=== PATIENT | female | born 1935 | race Caucasian/White ===

== ENCOUNTER 2018-10-06 08:33 | Emergency (ER) | payer OTHER, MEDICARE ==
[2018-10-06 08:52] VITALS: BP 161/78; PULSE 76; TEMP 98.1; BMI 28.3
--- NOTE | 2018-10-06 09:00 | PDOC ---
History of Present Illness - General Chief Complaint: Pain Stated Complaint: RT HIP LEG PAIN Time Seen by Provider: 10/06/18 08:58 History Source: Patient Exam Limitations: No Limitations - History of Present Illness Initial Comments: 10/06/18 09:17 83 YOF with h/o HTN and HLD, arthritis and left hip tendonitis, rotator cuff repair presenting with right buttock/hip pain x 1 day. Yesterday, she was getting up from chair in kitchen when she had her hip give out, leading to subsequent pain and difficulty walking. No falls. No head trauma. a/w lower right lumbar back pain. She has had issues with left hip/ arthritis in the past. No urinary or stool incontinence/changes. No fever or chills. No weakness or paresthesias. No abdominal pain. Has tried tylenol for pain with some relief. Has not tried additional analgesia agents. No h/o frequent falls. PMH HTN and HLD, arthritis and left hip tendonitis PSH rotator cuff repair social lives with /family. no tobacco or etoh or drugs. ROS Constitutional: no fever Gastrointestinal: no abdominal pain, nausea or vomiting. Genitourinary: no urinary sx, hematuria. No retention or incontinence. MUSCULOSKELETAL: No joint pain and swelling. No neck pain. +back pain. +buttock/ hip pain SKIN: no redness or skin changes, no discharge, no rash. No wounds. Hematologic: no easy bruising/bleeding. NEUROLOGIC: No weakness, numbness or tingling. Allergic/Immunologic: no allergies All other systems reviewed and negative, or as documented in HPI. PE: General: NAD, well appearing Abdomen: nontender, soft. obese. Vascular: 2+ DP pulses symmetric and equal. Back: no midline tenderness, no stepoffs, FROM in all extremities. pelvis stable , ROM in hip intact, no palp tenderness . +right paravertebral lumbar and SI joint tenderness to palpation. Focused MSK/Neuro Exam notable for soft compartments, Cap refill <2 sec. Proximal and distal strength 5/5, strategy intern strength 5/5 - equal and symmetric. Plantar flexion and dorsiflexion 5/5. FROM. Sensation grossly intact to light touch. Neg SLR bilaterally. Wiggles toes bilaterally. Skin: color normal color, warm and well perfused. 10/06/18 10:30 10/06/18 10:31 Past History - Past Medical History Allergies/Adverse Reactions: Allergies Allergy/AdvReac Type Severity Reaction Status Date / Time No Known Drug Allergies Allergy Verified 10/06/18 09:23 Home Medications: Ambulatory Orders Acetaminophen [Tylenol -] 500 mg PO ONCE PRN 10/06/18 Amlodipine Besylate 5 mg PO DAILY 10/06/18 Atorvastatin Ca [Lipitor] 20 mg PO HS 10/06/18 Cyclobenzaprine HCl [Flexeril 10 mg] 10 mg PO TID PRN #15 tablet 10/06/18 Anemia: No Asthma: No Cancer: No Cardiac Disorders: No CVA: No COPD: No CHF: No Dementia: No Diabetes: No GI Disorders: No Disorders: No HTN: No Hypercholesterolemia: Yes Liver Disease: No Seizures: No Thyroid Disease: No Other medical history: SPINAL STENOSIS - Surgical History Abdominal Surgery: No Appendectomy: No Cardiac Surgery: No Cholecystectomy: No Lung Surgery: No Neurologic Surgery: No Orthopedic Surgery: Yes (LEFT SHOULDER ARTHROSCOPY) - Suicide/Smoking/Psychosocial Hx Smoking History: Never smoked Have you smoked in the past 12 months: No Information on smoking cessation initiated: No Hx Alcohol Use: No Drug/Substance Use Hx: No Substance Use Type: None Hx Substance Use Treatment: No *Physical Exam - Vital Signs Last Vital Signs Temp Pulse Resp BP Pulse Ox 98.1 F 76 20 161/78 99 10/06/18 08:33 10/06/18 08:33 10/06/18 08:33 10/06/18 08:33 10/06/18 08:33 Moderate Sedation - Procedure Monitoring Vital Signs: Procedure Monitoring Vital Signs Temperature 98.1 F 10/06/18 08:33 Pulse Rate 76 10/06/18 08:33 Respiratory Rate 20 10/06/18 08:33 Blood Pressure 161/78 10/06/18 08:33 O2 Sat by Pulse Oximetry (%) 99 10/06/18 08:33 Medical Decision Making - Medical Decision Making 10/06/18 09:17 DDx. back pain: lumbar strain, sciatica, lumbar radiculopathy, buttock strain. muscle spasms; doubt cord compression or cauda equina w/o red flag sx and normal rectal tone. plan: Xrays hip/pelvis; analgesia. no back lumbar xray indicated, as no midline tenderness, no falls or trauma to suggest injuries or compression fx. given lidoderm patch, NSAID and flexeril Xray_pelvis/right hip with degenerative changes. SI jt maintained. no fx. no dislocation or other injuries. supportive care and ROM exercises as discussed. f/u doctor for her shots/ arthritis treatment (usually gets steroid inj on left hip for arthritis). dispo: Pt to be discharged in stable condition. Patient and family made aware of impression and plan, return precautions discussed (including but not limited to worsening pain or symptoms), fevers, or signs of infection, chest pain, respiratory distress, inability to tolerate oral intake, dehydration, syncope, or neurologic changes). Follow up with PMD and/or specialist as recommended, follow up information provided, take medications as instructed for duration of time. continue with supportive care, avoid triggers and precipitants. Patient does not suffer from an acute life-threatening medical condition at this time she is safe for outpatient follow-up. 10/06/18 10:27 *DC/Admit/Observation/Transfer Diagnosis at time of Disposition: Strain of lumbar paraspinal muscle Qualifiers: Encounter type: initial encounter Qualified Code(s): S39.012A - Strain of muscle, fascia and tendon of lower back, initial encounter Strain of right buttock Qualifiers: Encounter type: initial encounter Qualified Code(s): S76.011A - Strain of muscle, fascia and tendon of right hip, initial encounter - Discharge Dispostion Disposition: HOME Condition at time of disposition: Improved Decision to Admit order: No - Prescriptions Prescriptions: Cyclobenzaprine HCl [Flexeril 10 mg] 10 mg PO TID PRN #15 tablet PRN Reason: Muscle Spasms - Referrals Referrals: Manny Rosas MD [Staff Physician] - Waldemar Ricketts MD [Staff Physician] - - Patient Instructions Printed Discharge Instructions: DI for Muscle Strain, DI for Back Strain or Sprain Additional Instructions: you most likely have musculoskeletal strain of your lumbar/gluteus muscles. your Xrays appear normal with some arthritic changes that could be precipitating the pain avoid heavy lifting or strenuous activity rest and take tylenol as needed for mild to moderate pain. flexeril is a muscle relaxant, take three times a day as needed may cause sleepiness, do not drive or operate machinery. topical lidoderm patch to the area affected, 12 hours on and 12 hours off.. May take ibuprofen/tylenol as needed, over the counter. continue with range of motion exercises. images and information provided to assist with home physical therapy Follow up with primary doctor/specialist services provided as well. orthopedics referrals given. - Post Discharge Activity
[2018-10-06] MEDS ORDERED: CYCLOBENZAPRINE HCL 5 MG TABLET PO ONE (09:10)
[2018-10-06] MEDS ORDERED: IBUPROFEN 600 MG TABLET (FP) PO ONE ×2 (09:10→09:17)
[2018-10-06] MEDS ORDERED: LIDOCAINE 5% TOPICAL PATCH TP ONE (09:10)
[2018-10-06] MEDS ORDERED: CYCLOBENZAPRINE HCL 10 MG TABLET (FP) ONE (09:17)
[2018-10-06] MEDS ORDERED: LIDOCAINE 5% TOPICAL PATCH ONE (09:17)
[2018-10-06] MEDS ORDERED: LIDOCAINE PATCH REMOVAL MC SCH (22:00)
== END 2018-10-06 10:35 | disposition home or self-care (01) ==
LOC: FER 08:33
DX: S39.012A Strain of muscle, fascia and tendon of lower back, initial encounter (principal); S76.011A Strain of muscle, fascia and tendon of right hip, initial encounter; X58.XXXA Exposure to other specified factors, initial encounter; Y93.89 Activity, other specified; Y92.9 Unspecified place or not applicable; Y99.9 Unspecified external cause status; I10 Essential (primary) hypertension; E78.5 Hyperlipidemia, unspecified
CPT/HCPCS: 73523-TC-FY; 99282-25

== ENCOUNTER 2022-06-19 11:09 | Inpatient (IN) | payer OTHER, MEDICARE ==
[2022-06-19 11:29] VITALS: BMI 25.2
[2022-06-19] MEDS ORDERED: ACETAMINOPHEN 1000 MG/100 ML BAG IVPB ONE (12:40)
[2022-06-19] MEDS ORDERED: ACETAMINOPHEN INJECTION 100 ML IVPB ONE (13:13)
[2022-06-19 13:20] LABS: BASO % 0.6 % (0-2.0); EOS % 0.9 % (0-4.5); HEMATOCRIT 36.5 % (32.4-45.2); HEMOGLOBIN 12.5 GM/dL (10.7-15.3); LYMPH % 11.1 % (8-40); MCH 32.1 pg (25.7-33.7); MCHC 34.3 g/dl (32.0-36.0); MEAN CELL VOLUME 93.6 fl (80-96); MEAN PLT VOLUME 8.1 fl (7.5-11.1); MONO % 8.4 % (3.8-10.2); PLATELET COUNT 194 10^3/uL (134-434); RDW 13.2 % (11.6-15.6); WHITE BLOOD COUNT 8.9 K/mm3 (4.0-10.0)
[2022-06-19 13:32] LABS: ACTIVATED PTT 31.8 SECONDS (25.2-36.5); INR 1.03 (0.83-1.09); PROTHROMBIN TIME (PATIENT) 11.9 SEC (9.7-13.0)
[2022-06-19 13:41] LABS: ALBUMIN 3.4 g/dl (3.4-5.0); CALCIUM 9.7 mg/dL (8.5-10.1)
[2022-06-19 13:44] LABS: CREATININE 0.7 mg/dL (0.55-1.3)
[2022-06-19 13:46] LABS: BILIRUBIN,TOTAL 1.1 mg/dL (0.2-1); TOT PROT 10.3 g/dl (6.4-8.2)
[2022-06-19 14:09] LABS: BLOOD UREA NITROGEN 17.1 mg/dL (7-18)
[2022-06-19] MEDS ORDERED: CEFTRIAXONE 1 GM in DEXTROSE 5%-WATER - 100 ML IVPB ONE (18:27)
[2022-06-19] MEDS ORDERED: CEFTRIAXONE 1 GM/50 ML BAG ONE (19:05)
[2022-06-19] MEDS ORDERED: oxyCODONE HCL 5 MG TABLET PO PRN (21:09)
[2022-06-19 23:58] LABS: URINE APPEARANCE CLEAR; URINE BILIRUBIN NEGATIVE (NEGATIVE); URINE COLOR YELLOW; URINE GLUCOSE (UA) NEGATIVE (NEGATIVE)
[2022-06-19 23:59] LABS: URINE KETONE TRACE (NEGATIVE); URINE LEUK ESTERASE NEGATIVE (NEGATIVE); URINE NITRITE NEGATIVE (NEGATIVE); URINE PROTEIN NEGATIVE (NEGATIVE); URINE UROBILINOGEN 0.2 mg/dL (0.2-1.0)
[2022-06-20 07:43] LABS: BASO % 0.4 % (0-2.0); EOS % 0.2 % (0-4.5); HEMOGLOBIN 11.1 GM/dL (10.7-15.3); LYMPH % 11.5 % (8-40); MCH 31.5 pg (25.7-33.7); MCHC 33.5 g/dl (32.0-36.0); MEAN PLT VOLUME 9.4 fl (7.5-11.1); MONO % 9.1 % (3.8-10.2); NEUT % 78.8 % (42.8-82.8); PLATELET COUNT 179 10^3/uL (134-434); RBC 3.51 M/mm3 (3.60-5.2); RDW 13.3 % (11.6-15.6); WHITE BLOOD COUNT 8.9 K/mm3 (4.0-10.0)
[2022-06-20 08:14] LABS: CALCIUM 8.6 mg/dL (8.5-10.1); MAGNESIUM 2.4 mg/dL (1.8-2.4)
[2022-06-20 08:16] LABS: CREATININE 0.7 mg/dL (0.55-1.3); PHOSPHOROUS 3.4 mg/dL (2.5-4.9)
[2022-06-20 08:19] LABS: BILIRUBIN,TOTAL 1.3 mg/dL (0.2-1); TOT PROT 8.8 g/dl (6.4-8.2)
[2022-06-20 08:26] LABS: BLOOD UREA NITROGEN 17.6 mg/dL (7-18)
[2022-06-20] MEDS: amLODIPine BESYLATE 5 MG TABLET (FP) PO SCH (11:03)
[2022-06-20] MEDS: NYSTATIN 100,000 UNIT/GM TOPICAL CREAM 15 GM TUBE TP SCH ×2 (14:21→21:24)
[2022-06-20 15:01] LABS: BILIRUBIN,DIRECT 0.3 mg/dL (0.0-0.2)
[2022-06-20] MEDS ORDERED: ATORVASTATIN CA 20 MG TABLET (FP) PO SCH (22:00)
[2022-06-20] MEDS ORDERED: ATORVASTATIN CA 40 MG TABLET (FP) PO SCH (22:00)
[2022-06-21 08:52] LABS: HEMATOCRIT 35.1 % (32.4-45.2); HEMOGLOBIN 11.8 GM/dL (10.7-15.3); MCH 31.8 pg (25.7-33.7); MCHC 33.6 g/dl (32.0-36.0); MEAN CELL VOLUME 94.6 fl (80-96); MEAN PLT VOLUME 9.2 fl (7.5-11.1); PLATELET COUNT 174 10^3/uL (134-434); RBC 3.71 M/mm3 (3.60-5.2); RDW 13.1 % (11.6-15.6)
[2022-06-21 09:14] LABS: ALBUMIN 3.3 g/dl (3.4-5.0); MAGNESIUM 2.4 mg/dL (1.8-2.4)
[2022-06-21 09:17] LABS: CREATININE 0.8 mg/dL (0.55-1.3); PHOSPHOROUS 2.1 mg/dL (2.5-4.9)
[2022-06-21 09:19] LABS: BILIRUBIN,TOTAL 1.4 mg/dL (0.2-1); TOT PROT 9.6 g/dl (6.4-8.2)
[2022-06-21 09:20] LABS: BLOOD UREA NITROGEN 18.4 mg/dL (7-18)
[2022-06-21] MEDS: NYSTATIN 100,000 UNIT/GM TOPICAL CREAM 15 GM TUBE TP SCH (09:41)
[2022-06-21] MEDS: amLODIPine BESYLATE 5 MG TABLET (FP) PO SCH (09:41)
[2022-06-21 10:25] VITALS: BP 118/64; PULSE 78; RESP 18; TEMP 97.8
== END 2022-06-21 14:43 | disposition home health service (06) | DRG 315 ==
LOC: JER 11:09 → JERBED 14:57 → MERGE 21:09 → OBSVTOIN 21:09 → J4W 22:23
PROVIDERS: ADMIT Internal Medicine; ATTEND Internal Medicine
DX: S26.11XA Contusion of heart without hemopericardium, initial encounter (principal); I45.2 Bifascicular block; S22.31XA Fracture of one rib, right side, initial encounter for closed fracture; S01.81XA Laceration without foreign body of other part of head, initial encounter; X58.XXXA Exposure to other specified factors, initial encounter; Y93.9 Activity, unspecified; Y92.89 Other specified places as the place of occurrence of the external cause; Y99.9 Unspecified external cause status; V89.2XXA Person injured in unspecified motor-vehicle accident, traffic, initial encounter; Y92.488 Other paved roadways as the place of occurrence of the external cause; I10 Essential (primary) hypertension; E78.5 Hyperlipidemia, unspecified; I45.10 Unspecified right bundle-branch block; K76.89 Other specified diseases of liver; C88.0 Waldenstrom macroglobulinemia; R91.8 Other nonspecific abnormal finding of lung field
CPT/HCPCS: 36415; 70450-TC; 70486-TC; 71045-TC-FY; 71260-TC; 72125-TC; 74177-TC; 80053; 81003; 82248; 83735; 84100; 84484; 85025; 85027; 85610; 85730; 86850; 86900; 86901; 93005; 93010; 93306-TC; 94010; 97116-GP; 97162-GP; 99285-25; C9803-CS; G0378; Q9967; U0003; U0005